=== PATIENT | female | born 1965 ===

== ENCOUNTER 2018-05-14 13:33 | Outpatient (CLI) | payer BC ==
--- NOTE | 2018-05-14 14:47 | RAD ---
PA AND LATERAL VIEWS CHEST: HISTORY: Wellness exam. FINDINGS: The heart size is normal. The lungs are expanded without focal areas of consolidation, pneumothorace s, or pleural effusions. No acute osseous abnormalities are seen. IMPRESSION: No radiographic evidence of acute cardiopulmonary process. POS: [facility]
--- NOTE | 2018-05-14 15:39 | BD ---
DEXA SCAN: INDICATION: Osteoporosis screening COMPARISON: None. FINDINGS: Lumbar Spine: BMD (g/cm2) L1 0.675 T-Score: -2.9 Z-Score: -2.0 L2 0.673 T-Score: -3.2 Z-Score: -2.3 L3 0.717 T-Score: -3.3 Z-Score: -2.4 L4 0.700 T-Score: -3.3 Z-Score: -2.3 L1-L4 0.692 T-Score: -3.2 Z-Score: -2.3 Femoral Neck: 0.629 T-Score: -2.0 Z-Score: -1.0 Total Femur: 0.764 T-Score: -1.5 Z-Score: -0.9 Impression: Based on WHO criteria, the patient's bone mineral density is considered osteoporotic. The patient is at high risk for fracture. POS: [facility]
--- NOTE | 2018-05-16 11:12 | MMO ---
Bilateral MAMMO Bilat Screen [facility]. CLINICAL HISTORY: Patient is 52 years old and is seen for screening. The patient has no family history of breast cancer. The patient has no personal history of cancer. VIEWS: The views performed were: bilateral craniocaudal with tomosynthesis and bilateral mediolateral oblique with tomosynthesis. FILMS COMPARED: The present examination has been compared to prior imaging studies performed at [facility] on 01/20/2014, 04/03/2015 and 04/26/2016, and at [facility] on 11/27/2012. MAMMOGRAM FINDINGS: The breasts are heterogeneously dense, which could obscure a lesion on mammography. There are stable benign appearing calcifications seen in both breasts. There are no suspicious masses, suspicious calcifications, or new areas of architectural distortion. IMPRESSION: THERE IS NO MAMMOGRAPHIC EVIDENCE OF MALIGNANCY. A ROUTINE FOLLOW-UP MAMMOGRAM IN 1 YEAR IS RECOMMENDED. THE RESULTS OF THIS EXAM WERE SENT TO THE PATIENT. ACR BI-RADS Category 2 - Benign finding MAMMOGRAPHY NOTE: 1. A negative mammogram report should not delay a biopsy if a dominant of clinically suspicious mass is present. 2. Approximately 10% to 15% of breast cancers are not detected by mammography. 3. Adenosis and dense breasts may obscure an underlying neoplasm.
== END 2018-05-14 13:34 | disposition home or self-care (01) ==
LOC: BICMAMMO 13:33
DX: Z12.31 Encounter for screening mammogram for malignant neoplasm of breast (principal); Z00.00 Encounter for general adult medical examination without abnormal findings; M81.0 Age-related osteoporosis without current pathological fracture
CPT/HCPCS: 71046; 77063; 77067; 77080